=== PATIENT | male | born 1985 | race Two or more races ===

== ENCOUNTER 2019-10-24 13:57 | Outpatient (CLI) | payer MEDICAID ==
[~2019-10-24] VITALS: Ht 172.7 cm; Wt 81.6 kg
[2019-10-24] MEDS ORDERED: PROSCAR5 MG ORAL (15:57)
[2019-10-24] MEDS ORDERED: GABAPENTIN100 MG ORAL (15:57)
[2019-10-24] MEDS ORDERED: TRUVADA 200 MG1 EAC1 ORAL (15:57)
[2019-10-24] MEDS ORDERED: LITHIUM CARBON300 MG ORAL (15:57)
[2019-10-24] MEDS ORDERED: VIAGRA100 MG PO (15:57)
[2019-10-24] MEDS ORDERED: ADDERAL PO (15:57)
[2019-10-24] MEDS ORDERED: ADDERALL XR 5 MG5 MG ORAL (15:57)
[2019-10-24] MEDS ORDERED: LAMICTAL100 MG ORAL (15:57)
[2019-10-24 15:58] VITALS: BP 123/76
--- NOTE | 2019-10-24 20:15 | Consultation ---
DATE OF CONSULTATION: 10/24/2019 CHIEF COMPLAINT: Rectal bleeding. HISTORY OF PRESENT ILLNESS: The patient is a 33-year-old male with past history of ulcerative colitis for about 20 years, apparently got treatment for few years and then stopped, for many years has not been on any treatment, started having rectal bleeding about few weeks ago, initially was bloody, bright red blood, gradually getting a little bit better, but he has not had a colonoscopy since then. PAST MEDICAL HISTORY: 1. Ulcerative colitis. 2. Bipolar disorder. 3. Hypertension. PAST SURGICAL HISTORY: None. MEDICATIONS: Please see medication reconciliation list. FAMILY HISTORY: No family history of GI malignancies. SOCIAL HISTORY: The patient drinks occasionally. Denies any IV drug abuse. Denies any tobacco abuse. ALLERGIES: To sulfa. MEDICATIONS: Please see medication reconciliation list. REVIEW OF SYSTEMS: Positive for abdominal pain, rectal bleeding. PHYSICAL EXAMINATION: VITAL SIGNS: Temperature 97.7, blood pressure 123/76, pulse 103, respirations 20. HEENT: Normocephalic and atraumatic. Sclerae anicteric. NECK: Supple. No evidence of obvious lymphadenopathy. CARDIOVASCULAR: Regular rate and rhythm. Plus S1 and S2. LUNGS: Clear to auscultation bilaterally. ABDOMEN: Positive bowel sounds. Soft and nontender. No rebound. No guarding. No peritoneal signs. EXTREMITIES: No cyanosis, no clubbing, no edema. ASSESSMENT AND PLAN: This is a 33-year-old male with ulcerative colitis, now seems to be flaring up. Plan to do a colonoscopy urgently and then we will treat according to the colonoscopy findings. The patient was given the prescription for colonoscopy. Risks and benefits of procedure was explained to him and he agreed. Sebastian Velasco M.D. DR: [place] JOB#: [id number] CC:
== END 2019-10-24 15:57 | disposition home or self-care (01) ==
LOC: PAN 13:57
DX: K62.5 Hemorrhage of anus and rectum (principal); I10 Essential (primary) hypertension; F31.9 Bipolar disorder, unspecified
CPT/HCPCS: G0463

== ENCOUNTER 2019-12-06 13:48 | Outpatient (CLI) | payer MEDICAID ==
[~2019-12-06 13:48] MED LIST: ADDERAL PO; ADDERALL XR 5 MG5 MG ORAL; GABAPENTIN100 MG ORAL; LAMICTAL100 MG ORAL; LITHIUM CARBON300 MG ORAL; PROSCAR5 MG ORAL; TRUVADA 200 MG1 EAC1 ORAL; VIAGRA100 MG PO
--- NOTE | 2019-12-06 15:23 | General Progress Note ---
Assessment/Plan Assessment/Plan: colonoscopy showed proctitis pathology c/w more acute but patient has been having symptoms for 4 months recommend avoid anal sex treat with apriso RTC one month Subjective ROS Limited/Unobtainable: Yes Allergies: Coded Allergies: SULFA (SULFONAMIDE ANTIBIOTICS) (Verified Allergy, Unknown, 10/24/19) BRUISE Objective General Appearance: alert EENT: normal ENT inspection Neck: supple Cardiovascular: normal rate Respiratory/Chest: decreased breath sounds Abdomen: normal bowel sounds, non tender, soft Extremities: non-tender Sebastian Velasco MD Dec 06, 2019 15:23
== END 2019-12-06 15:48 | disposition home or self-care (01) ==
LOC: PAN 13:48
DX: K62.89 Other specified diseases of anus and rectum (principal); Z88.2 Allergy status to sulfonamides
CPT/HCPCS: 99212